=== PATIENT | female | born 1950 | race Caucasian/White ===

== ENCOUNTER 2017-08-17 16:29 | Emergency (ER) | payer BC, OTHER ==
[~2017-08-17] VITALS: Ht 157.5 cm; Wt 94.6 kg
[~2017-08-17 16:29] MED LIST: ASPI81TA28 PO; ATEN-173 PO; ATOR-24 PO; CALC500C70 PO; LEVO175T3 PO; LOSA100T33 PO; MULT-506 PO
[2017-08-17 16:33] VITALS: TEMP 36.7; Ht 157.5 cm; Wt 94.6 kg
[2017-08-17] MEDS ORDERED: ACETAMINOPHEN 325 MG TAB PO STA (16:44)
--- NOTE | 2017-08-17 17:19 | DIAGNOSTIC IMAGING REPORT ---
CT SCAN OF THE BRAIN WITHOUT IV CONTRAST CLINICAL HISTORY: Fall. Head injury. COMPARISON STUDY: No priors. TECHNIQUE: Unenhanced axial CT scan of the brain is performed from the vertex to the skull base. A dose lowering technique was utilized adhering to the principles of ALARA. CT DOSE: 537.48 mGy.cm FINDINGS: Brain parenchyma: There are age-related involutional changes noting minimal subcortical and periventricular microangiopathic change. There is no hemorrhage, mass effect, or evidence of acute territorial ischemia by CT criteria. Perla-white matter is preserved. No extra-axial fluid collection is seen. Ventricles, sulci, cisterns: Prominent secondary to involutional change. Intracranial vasculature: There is atherosclerotic calcification of the cavernous carotid arteries. Calvarium: The skeletal structures are osteopenic. No depressed calvarial fracture is identified. Soft tissues: There is a small right frontal scalp contusion. Sinuses and mastoids: The visualized paranasal sinuses are clear. The mastoid air cells are well pneumatized. Orbits: The bony orbits are grossly intact. IMPRESSION: There is no hemorrhage, mass effect, or evidence of acute territorial ischemia by CT criteria. Electronically signed by: Thai Moon M.D. 08/17/2017 5:17 PM Dictated Date/Time: 08/17/2017 5:15 PM
--- NOTE | 2017-08-17 17:31 | EMERGENCY ROOM VISIT NOTE ---
History First contact with patient: 16:39 Chief Complaint: HEAD INJURY (MINOR) Stated Complaint: BLEEDING INSIDE MOUTH, BUMP ON HEAD- FALL History of Present Illness The patient is a 67 year old female who presents to the Emergency Room via private vehicle with complaints of "bleeding inside mouth, bump on head". The patient states that earlier today around 2 PM she was at home, and tripped over a branch, fell forward, and struck the right anterior forehead and her mouth off of the wheelbarrow. She notes that she does take aspirin. She denies loss of consciousness. She notes no vomiting, nausea or neck pain. There is minimal headache which she rates as a 5/10. She denies any other injury or pain. Tetanus is up-to-date per Review of Systems A complete 6-point Review of Systems was discussed with the patient, with pertinent positives and negatives listed in the History of Present Illness. All remaining Review of Systems questions can be considered negative unless otherwise specified. Past Medical/Surgical History Medical Problems: (1) CKD (chronic kidney disease) stage 3, GFR 30-59 ml/min (2) Diastolic dysfunction, left ventricle (3) Dyslipidemia (4) HTN (hypertension) (5) Mitral valve prolapse Social History Smoking Status: Never Smoker Marital Status: Occupation Status: employed Current/Historical Medications Scheduled Aspirin (Aspirin Ec), 81 MG PO DAILY Atenolol (Tenormin), 25 MG PO DAILY Atorvastatin (Lipitor), 40 MG PO DAILY Calcium/Vitamin D (Os-Lewis 500 Plus D), 2 TAB PO DAILY Hctz/Losartan (Hyzaar 12.5MG/100MG), 1 TABLET PO DAILY Levothyroxine Sodium (Levothyroxine Sodium), 175 MCG PO DAILY Multivitamin (Multivitamin), 1 TAB PO DAILY Physical Exam Vital Signs Date Time Temp Pulse Resp B/P (MAP) Pulse Ox O2 Delivery O2 Flow Rate FiO2 08/17/17 17:54 73 18 162/98 98 08/17/17 16:36 18 08/17/17 16:33 36.7 80 18 170/83 99 Room Air Physical Exam VITAL SIGNS - Vital signs and nursing notes were reviewed. Stable. GENERAL -67-year-old female appearing her stated age. Communicates well with provider and answers questions appropriately. SKIN - Gross examination of the entire body surface demonstrates no lacerations to the body surface, however there are 2 small intraoral 2 mm in length lacerations noted on the lower inner lip. These lacerations will NOT require repair. There is minimal ecchymosis noted to the right anterior forehead. HEAD - Normocephalic, Atraumatic. No Higgins's Sign or Raccoon's Eyes. No depressed skull fractures palpable. EYES - PERRL with EOMI bilaterally. Without subconjunctival hemorrhage. Palpebral conjunctiva pink and moist with no injection. EARS - No deformities of external structures noted on gross examination bilaterally. No hemotympanum present. No tympanic perforation noted. Handle of malleus, umbo, cone of light, pars tensa/flaccid all easily visualized. NOSE - Midline and without cyanosis. No epistaxis or clear watery discharge noted. Septum midline without deviation. No septal hematoma noted. No overlying ecchymosis noted. MOUTH/OROPHARYNX - Without perioral cyanosis. Tongue midline with equal elevation of palate bilaterally. No blood noted in the oropharynx. No tonsillar hypertrophy, erythema, or exudates noted. No dental fractures noted. NECK - No tenderness to palpation over the cervical spinous processes. No cervical paraspinal muscle tenderness noted. EXTREMITIES - No gross deformities noted of the extremities. NEUROLOGIC - Cranial nerves II through XII grossly intact. PSYCH - A&O, and cooperates fully with examiner. Pt is very pleasant and interacts well with examiner. Medical Decision & Procedures ER Provider Diagnostic Interpretation: CT SCAN OF THE BRAIN WITHOUT IV CONTRAST CLINICAL HISTORY: Fall. Head injury. COMPARISON STUDY: No priors. TECHNIQUE: Unenhanced axial CT scan of the brain is performed from the vertex to the skull base. A dose lowering technique was utilized adhering to the principles of ALARA. CT DOSE: 537.48 mGy.cm FINDINGS: Brain parenchyma: There are age-related involutional changes noting minimal subcortical and periventricular microangiopathic change. There is no hemorrhage, mass effect, or evidence of acute territorial ischemia by CT criteria. Perla-white matter is preserved. No extra-axial fluid collection is seen. Ventricles, sulci, cisterns: Prominent secondary to involutional change. Intracranial vasculature: There is atherosclerotic calcification of the cavernous carotid arteries. Calvarium: The skeletal structures are osteopenic. No depressed calvarial fracture is identified. Soft tissues: There is a small right frontal scalp contusion. Sinuses and mastoids: The visualized paranasal sinuses are clear. The mastoid air cells are well pneumatized. Orbits: The bony orbits are grossly intact. IMPRESSION: There is no hemorrhage, mass effect, or evidence of acute territorial ischemia by CT criteria. Electronically signed by: Thai Moon M.D. 08/17/2017 5:17 PM Dictated Date/Time: 08/17/2017 5:15 PM Medications Administered Medications (Trade) Dose Ordered Sig/Mariajose Route Start Time Stop Time Status Last Admin Dose Admin Acetaminophen (Tylenol Tab) 650 mg NOW STAT PO 08/17/17 16:44 08/17/17 16:46 DC 08/17/17 17:02 650 MG Medical Decision Patient was seen and evaluated as above in room D6. Review was performed of nursing notes and vital signs. After obtaining a thorough history and physical examination the above work up was performed. She presents to us today status post mechanical fall with head and mouth pain. GCS 15. Secondary to mechanism of injury, CT scan was obtained of the head. This was negative except for chronic change which she was educated upon. She is to do salt water rinses for the intraoral small lacerations. These do not require repair. No other injury appreciated. Case was discussed with the attending physician. He also personally evaluate the patient. The patient was educated upon management, had questions answered prior to discharge, and was discharged home in good condition. She was given Tylenol for pain while here. I attest that I have personally reviewed the patient medication list. I attest that I have reviewed the patient's blood pressure and it was found to be elevated and she is to follow with the family doctor following today's visit. In the evaluation and treatment of this patient, the following differential diagnoses were considered: Concussion, Contrecoup Injury, Brain Tumor, Depression, Encephalitis, Hypothyroidism, Meningitis, CVA, TIA, Migraine, Cluster Headache, Intracranial Abnormality, Intracranial Hemorrhage, Subdural Hematoma, Subarachnoid Hemorrhage, Hydrocephalus. Impression Primary Impression: Fall Additional Impressions: Head contusion Laceration of intraoral surface of lip Departure Information Dispostion Home / Self-Care Condition GOOD Referrals Brittany Grove M.D. (PCP) Patient Instructions My [facility] Additional Instructions You have been treated in the Emergency Department for a injury sustained after a fall.. You likely experiencing a contusion/bruise of your right forehead, with cuts on the inside of the mouth. CT scan does not show any bleeding or fracture/broken bones within the head. Please rinse your mouth with salt water after eating to help with healing of the lip. For pain control, you can use the following [id number] medicines - Regular strength (325mg/tab) Tylenol (acetaminophen) 2 tabs every 4-6 hours as needed. Do not exceed 12 tablets in a 24 hour period. Avoid taking more than 3 grams (3000 mg) of Tylenol per day. This includes any other sources of acetaminophen you may take on a regular basis. - Regular strength (200 mg/tab) Advil (ibuprofen) 1-2 tabs every 4-6 hours as needed. Do not exceed a dose of 3200 mg per day. Please only take this for short period of time as this can injure the kidneys. You should relax in a quiet, dark place for the rest of the day. Avoid any possible triggers including: cigarette smoke, caffeine, nicotine, chocolate, wine, beer, loud noises or music, or bright lights. You should schedule a follow-up appointment in 7-10 days with your Primary Care Provider for follow-up regarding your injury today, and to review the CT scan. Return to the Emergency Department if your current symptoms worsen despite treatment course outlined above, or if you develop any of the following symptoms : intractable pain despite aforementioned treatment course, visual disturbances , loss of vision, unilateral weakness or facial drooping, slurring of speech, loss of coordination, or loss of consciousness. Problem Qualifiers
--- NOTE | 2017-08-17 17:43 | EMERGENCY ROOM VISIT NOTE ---
ED Visit Note First contact with patient: 16:39 Patient was seen by our PA/[employer] OF WAY [employer]TER. I was involved in the patient's care and did evaluate the patient myself. I was involved in the care throughout the ER stay. Patient presents after a fall and head injury. Brain CT shows no acute bleed or mass-effect, no skull fracture. There are some small cuts to the inside of her mouth that will not require suturing. She is being discharged home.
[2017-08-17 17:54] VITALS: BP 162/98; PULSE 73; O2SAT 98
== END 2017-08-17 17:56 | disposition home or self-care (01) ==
LOC: C.EDB 16:31 → C.EDD 17:56
DX: S00.83XA Contusion of other part of head, initial encounter (principal); S01.511A Laceration without foreign body of lip, initial encounter; W01.198A Fall on same level from slipping, tripping and stumbling with subsequent striking against other object, initial encounter; Y92.009 Unspecified place in unspecified non-institutional (private) residence as the place of occurrence of the external cause; I12.9 Hypertensive chronic kidney disease with stage 1 through stage 4 chronic kidney disease, or unspecified chronic kidney disease; N18.3 Chronic kidney disease, stage 3 (moderate); E78.5 Hyperlipidemia, unspecified; Z79.82 Long term (current) use of aspirin; Z79.899 Other long term (current) drug therapy